=== PATIENT | male | born 1960 | race Caucasian/White ===

== ENCOUNTER → 2016-12-24 | Outpatient (CLI) | payer OTHER ==
[~2016-12-24] MED LIST: ASPIRIN81 M1 PO; CO Q-1050 MG PO; FLOMAX0.4 MG PO; LIPITOR40 MG PO; NEXIUM40 MG PO; PERCOCET 325 MG1 TA2 PO; PLAVIX75 MG PO; TORADOL10 MG PO; ZOFRAN ODT4 MG SL
== END | disposition home or self-care (01) ==
LOC: CT 01:46
DX: R91.8 Other nonspecific abnormal finding of lung field (principal); I25.10 Atherosclerotic heart disease of native coronary artery without angina pectoris

== ENCOUNTER → 2017-02-18 | Outpatient (CLI) | payer OTHER | END | disposition home or self-care (01) | LOC: RAD 16:38 | DX: N20.0 Calculus of kidney (principal); I70.0 Atherosclerosis of aorta ==

== ENCOUNTER 2017-12-31 14:50 | Emergency (ER) | payer OTHER ==
[~2017-12-31] VITALS: Ht 170.1 cm; Wt 95.3 kg
[2017-12-31] MEDS ORDERED: NORCO 5-325 TA1 EACH PO (16:32)
[2017-12-31] MEDS ORDERED: CEFADROXIL500 M1 PO (16:32)
== END 2017-12-31 17:58 | disposition home or self-care (01) ==
LOC: ED 14:50
DX: S62.663B Nondisplaced fracture of distal phalanx of left middle finger, initial encounter for open fracture (principal); S66.902A Unspecified injury of unspecified muscle, fascia and tendon at wrist and hand level, left hand, initial encounter; Z79.82 Long term (current) use of aspirin; Z79.899 Other long term (current) drug therapy; W23.0XXA Caught, crushed, jammed, or pinched between moving objects, initial encounter; Y93.89 Activity, other specified; Y92.89 Other specified places as the place of occurrence of the external cause; Y99.9 Unspecified external cause status

== ENCOUNTER → 2018-09-05 | Outpatient (CLI) | payer OTHER ==
[~2018-09-05] MED LIST changes: +CEFADROXIL500 M1 PO; +NORCO 5-325 TA1 EACH PO
== END | disposition home or self-care (01) ==
LOC: RAD 08-29 07:41
DX: K57.10 Diverticulosis of small intestine without perforation or abscess without bleeding (principal); K21.9 Gastro-esophageal reflux disease without esophagitis

== ENCOUNTER → 2019-03-17 | Outpatient (CLI) | payer OTHER | END | disposition home or self-care (01) | LOC: LAB 11:01 | DX: R07.89 Other chest pain (principal); R06.02 Shortness of breath ==

== ENCOUNTER → 2020-01-20 | Outpatient (CLI) | payer OTHER | END | disposition home or self-care (01) | LOC: CT 15:53 | DX: N28.89 Other specified disorders of kidney and ureter (principal); N20.0 Calculus of kidney ==

== ENCOUNTER → 2021-04-19 | Outpatient (CLI) | payer OTHER | END | disposition home or self-care (01) | LOC: RAD 12:01 | PROVIDERS: ATTEND Nurse Practitioner Family | DX: N20.0 Calculus of kidney (principal); M54.6 Pain in thoracic spine; M47.816 Spondylosis without myelopathy or radiculopathy, lumbar region ==

== ENCOUNTER → 2021-06-19 | Outpatient (CLI) | payer OTHER | END | disposition home or self-care (01) | LOC: RAD 13:39 | PROVIDERS: ATTEND Nurse Practitioner Family | DX: I25.10 Atherosclerotic heart disease of native coronary artery without angina pectoris (principal); I42.1 Obstructive hypertrophic cardiomyopathy; R00.1 Bradycardia, unspecified; I44.7 Left bundle-branch block, unspecified ==

== ENCOUNTER → 2022-03-27 | Outpatient (CLI) | payer OTHER | END | disposition home or self-care (01) | LOC: RAD 07:57 | PROVIDERS: ATTEND Nurse Practitioner Family | DX: N20.0 Calculus of kidney (principal); R30.0 Dysuria ==

== ENCOUNTER → 2022-04-06 | Outpatient (CLI) | payer OTHER ==
[2022-04-06 09:03] LABS: BASO % 0.7 % (0.0-1.0); EOS # 0.4 10*3/uL (0.0-0.4); EOS % 6.7 % (1.0-4.0); HEMATOCRIT 43.9 % (42.0-52.0); LYMPH # 1.6 10*3/uL (1.3-4.4); LYMPH % 29.2 % (27.0-41.0); MEAN CELL VOLUME 86.1 fl (80.0-94.0); MEAN CORPUSCULAR HGB 28.4 pg (27.0-31.0); MEAN PLATELET VOLUME 9.3 fl (9.6-12.3); MONO # 0.4 10*3/uL (0.1-1.0); MONO % 8.2 % (3.0-9.0); PLATELET COUNT AUTOMATED 251 10*3/uL (130-400); RED CELL DISTRI WIDTH 12.6 % (0-14.5); WHITE BLOOD COUNT 5.4 10*3/uL (4.8-10.8)
[2022-04-06 09:36] LABS: BUN 16 mg/dl (7-24); CHLORIDE 106 mmol/L (98-107); CHOLESTEROL 135 mg/dL (<200); CREATININE 0.82 mg/dL (0.70-1.30); LDL CHOLESTEROL 64 mg/dL (9-159); POTASSIUM 4.1 mmol/L (3.5-5.1); SGOT/AST 18 IU/L (3-35); SGPT/ALT 27 U/L (12-78); SODIUM 140 mmol/L (136-145); TOTAL PROTEIN 7.1 gm/dL (6.4-8.2); TRIGLYCERIDES 59 mg/dl (<150)
[2022-04-06 09:38] LABS: ALKALINE PHOSPHATASE 58 U/L (45-117)
== END | disposition home or self-care (01) ==
LOC: LAB 08:42
PROVIDERS: ATTEND Nurse Practitioner Family
DX: I25.10 Atherosclerotic heart disease of native coronary artery without angina pectoris (principal); Z85.46 Personal history of malignant neoplasm of prostate; E78.00 Pure hypercholesterolemia, unspecified; R00.1 Bradycardia, unspecified; M54.50 Low back pain, unspecified; Z12.5 Encounter for screening for malignant neoplasm of prostate

== ENCOUNTER → 2022-07-11 | Outpatient (CLI) | payer OTHER | END | disposition home or self-care (01) | LOC: RAD 11:37 | PROVIDERS: ATTEND Urology | DX: R10.2 Pelvic and perineal pain (principal) ==

== ENCOUNTER 2022-09-23 07:02 | Emergency (ER) | payer OTHER ==
[~2022-09-23] VITALS: Ht 175.2 cm; Wt 90.7 kg
[2022-09-23] MEDS ORDERED: ROSUVASTATIN CA40 MG PO (07:27)
[2022-09-23] MEDS ORDERED: OZEMPIC2 MG/0.71 SQ (07:27)
[2022-09-23] MEDS ORDERED: FLUOXETINE HCL40 MG PO (07:27)
[2022-09-23] MEDS ORDERED: PRASUGREL HCL10 MG PO (07:28)
[2022-09-23] MEDS ORDERED: HYDROXYZINE HCL25 MG PO (07:29)
[2022-09-23 07:41] LABS: BASO # 0.1 10*3/uL (0.0-0.1); EOS # 0.8 10*3/uL (0.0-0.4); HEMATOCRIT 42.6 % (42.0-52.0); LYMPH # 1.6 10*3/uL (1.3-4.4); LYMPH % 25.6 % (27.0-41.0); MEAN CELL VOLUME 84.5 fl (80.0-94.0); MEAN CORPUSCULAR HGB CONC 34.3 g/dl (33.0-37.0); MEAN PLATELET VOLUME 9.5 fl (9.6-12.3); MONO # 0.4 10*3/uL (0.1-1.0); MONO % 7.1 % (3.0-9.0); NEUT # 3.3 10*3/uL (2.3-7.9); NEUT % 53.1 % (47.0-73.0); PLATELET COUNT AUTOMATED 212 10*3/uL (130-400); RED BLOOD COUNT 5.04 10*6/uL (4.50-5.90); RED CELL DISTRI WIDTH 12.3 % (0-14.5); WHITE BLOOD COUNT 6.2 10*3/uL (4.8-10.8)
[2022-09-23 07:52] LABS: ACT PARTIAL THROMBO TIME 27.9 SECONDS (20.0-32.1); INTERNATIONAL NORM RATIO 1.1 (2.0-3.5)
[2022-09-23 07:57] LABS: ALKALINE PHOSPHATASE 66 U/L (46-116); BUN 11 mg/dl (9-23); CHLORIDE 106 mmol/L (98-107); POTASSIUM 4.2 mmol/L (3.4-5.1); SGPT/ALT 11 U/L (10-49); TOTAL PROTEIN 6.4 gm/dL (6.0-8.0)
[2022-09-23 10:06] LABS: BILIRUBIN Negative (Negative); BLOOD Negative (Negative); CLARITY Clear (Clear); COLOR Yellow (Yellow); GLUCOSE Negative (Negative); KETONE Negative (Negative); LEUKO ESTERASE Trace (Negative); NITRITE Negative (Negative); PH 7.5 (4.5-8.0); UROBILINOGEN 0.2 E.U./dl (0.0-1.0)
[2022-09-23 10:19] LABS: BACTERIA 1+; MUCOUS TRACE; WBC 21-30 wbc/hpf (0-5)
[2022-09-23] MEDS ORDERED: OMEPRAZOLE40 MG PO (13:06)
== END 2022-09-23 13:37 | disposition home or self-care (01) ==
LOC: ED 07:02
PROVIDERS: Emergency Medicine; Internal Medicine
DX: K21.9 Gastro-esophageal reflux disease without esophagitis (principal); Z79.899 Other long term (current) drug therapy; Z79.82 Long term (current) use of aspirin

== ENCOUNTER → 2022-11-28 | Outpatient (CLI) | payer OTHER ==
[~2022-11-28] MED LIST changes: +FLUOXETINE HCL40 MG PO; +HYDROXYZINE HCL25 MG PO; +OMEPRAZOLE40 MG PO; +OZEMPIC2 MG/0.71 SQ; +PRASUGREL HCL10 MG PO; +ROSUVASTATIN CA40 MG PO
== END | disposition home or self-care (01) ==
LOC: RAD 08:31
PROVIDERS: ATTEND Nurse Practitioner Family
DX: M47.817 Spondylosis without myelopathy or radiculopathy, lumbosacral region (principal); M43.8X5 Other specified deforming dorsopathies, thoracolumbar region

== ENCOUNTER → 2022-12-25 | Outpatient (CLI) | payer OTHER | END | disposition home or self-care (01) | LOC: RAD 10:09 | PROVIDERS: ATTEND Nurse Practitioner Family | DX: M43.8X4 Other specified deforming dorsopathies, thoracic region (principal); R93.89 Abnormal findings on diagnostic imaging of other specified body structures; M79.605 Pain in left leg ==

== ENCOUNTER → 2023-01-16 | Outpatient (CLI) | payer OTHER | END | disposition home or self-care (01) | LOC: MRI 01:32 | PROVIDERS: ATTEND Nurse Practitioner Family | DX: M47.816 Spondylosis without myelopathy or radiculopathy, lumbar region (principal); M48.061 Spinal stenosis, lumbar region without neurogenic claudication; M25.78 Osteophyte, vertebrae; M47.812 Spondylosis without myelopathy or radiculopathy, cervical region ==

== ENCOUNTER → 2023-02-28 | Outpatient (CLI) | payer OTHER ==
[2023-02-28 10:24] LABS: CHLORIDE 107 mmol/L (98-107); POTASSIUM 4.6 mmol/L (3.4-5.1)
[2023-02-28 10:25] LABS: ALKALINE PHOSPHATASE 75 U/L (46-116); BUN 9 mg/dl (9-23); CHOLESTEROL 122 mg/dL (<200); LDL CHOLESTEROL 56 mg/dL (9-159); SGPT/ALT 25 U/L (10-49); TOTAL PROTEIN 6.8 gm/dL (6.0-8.0); TRIGLYCERIDES 50 mg/dl (<150)
[2023-02-28 11:07] LABS: BASO # 0.1 10*3/uL (0.0-0.1); BASO % 0.9 % (0.0-1.0); EOS # 0.3 10*3/uL (0.0-0.4); EOS % 5.6 % (1.0-4.0); HEMATOCRIT 44.3 % (42.0-52.0); LYMPH # 1.7 10*3/uL (1.3-4.4); LYMPH % 31.2 % (27.0-41.0); MEAN CELL VOLUME 85.4 fl (80.0-94.0); MEAN CORPUSCULAR HGB 28.7 pg (27.0-31.0); MEAN CORPUSCULAR HGB CONC 33.6 g/dl (33.0-37.0); MEAN PLATELET VOLUME 8.9 fl (9.6-12.3); MONO # 0.4 10*3/uL (0.1-1.0); MONO % 7.1 % (3.0-9.0); PLATELET COUNT AUTOMATED 218 10*3/uL (130-400); RED BLOOD COUNT 5.19 10*6/uL (4.50-5.90); RED CELL DISTRI WIDTH 12.3 % (0-14.5); WHITE BLOOD COUNT 5.4 10*3/uL (4.8-10.8)
== END | disposition home or self-care (01) ==
LOC: LAB 09:02
PROVIDERS: ATTEND Nurse Practitioner Family
DX: I25.10 Atherosclerotic heart disease of native coronary artery without angina pectoris (principal); R73.01 Impaired fasting glucose; R00.1 Bradycardia, unspecified

== ENCOUNTER → 2023-06-03 | Day surgery (SDC) | payer MEDICARE, OTHER ==
[~2023-06-03] VITALS: Ht 170.1 cm; Wt 87.1 kg
[2023-06-03 12:07] VITALS: BP 145/75
[2023-06-03 12:50] VITALS: BP 131/77
[2023-06-03 13:05] VITALS: BP 136/80
[2023-06-03 13:20] VITALS: BP 141/78
== END | disposition home or self-care (01) ==
LOC: SDC 05-31 14:00
PROVIDERS: ATTEND Surgery
DX: K21.00 Gastro-esophageal reflux disease with esophagitis, without bleeding (principal); K31.89 Other diseases of stomach and duodenum; I25.10 Atherosclerotic heart disease of native coronary artery without angina pectoris; I48.91 Unspecified atrial fibrillation; E78.00 Pure hypercholesterolemia, unspecified; G47.30 Sleep apnea, unspecified; F41.9 Anxiety disorder, unspecified; F32.A Depression, unspecified; Z85.46 Personal history of malignant neoplasm of prostate; Z87.891 Personal history of nicotine dependence; Z79.899 Other long term (current) drug therapy; Z98.890 Other specified postprocedural states

== ENCOUNTER → 2023-08-29 | Outpatient (CLI) | payer MEDICARE ==
[2023-08-29 08:05] LABS: BASO % 0.8 % (0.0-1.0); EOS # 0.4 10*3/uL (0.0-0.4); EOS % 8.2 % (1.0-4.0); HEMATOCRIT 45.2 % (42.0-52.0); LYMPH # 1.8 10*3/uL (1.3-4.4); LYMPH % 34.4 % (27.0-41.0); MEAN CELL VOLUME 87.6 fl (80.0-94.0); MEAN CORPUSCULAR HGB 28.1 pg (27.0-31.0); MEAN CORPUSCULAR HGB CONC 32.1 g/dl (33.0-37.0); MEAN PLATELET VOLUME 8.9 fl (9.6-12.3); MONO # 0.5 10*3/uL (0.1-1.0); MONO % 8.8 % (3.0-9.0); NEUT # 2.5 10*3/uL (2.3-7.9); NEUT % 47.8 % (47.0-73.0); PLATELET COUNT AUTOMATED 240 10*3/uL (130-400); RED BLOOD COUNT 5.16 10*6/uL (4.50-5.90); RED CELL DISTRI WIDTH 12.4 % (0-14.5); WHITE BLOOD COUNT 5.1 10*3/uL (4.8-10.8)
[2023-08-29 08:17] LABS: URINE CREATININE RANDOM 57.29 mg/dL
[2023-08-29 08:37] LABS: ALKALINE PHOSPHATASE 71 U/L (46-116); BUN 10 mg/dl (9-23); CHLORIDE 106 mmol/L (98-107); CHOLESTEROL 129 mg/dL (<200); LDL CHOLESTEROL 60 mg/dL (9-159); SGPT/ALT 40 U/L (5-49); TOTAL PROTEIN 6.8 gm/dL (6.0-8.0); TRIGLYCERIDES 64 mg/dl (<150)
== END | disposition home or self-care (01) ==
LOC: LAB 07:49
PROVIDERS: ATTEND Nurse Practitioner Family
DX: I25.10 Atherosclerotic heart disease of native coronary artery without angina pectoris (principal); R00.1 Bradycardia, unspecified; F32.9 Major depressive disorder, single episode, unspecified; E11.69 Type 2 diabetes mellitus with other specified complication; Z85.46 Personal history of malignant neoplasm of prostate

== ENCOUNTER → 2023-09-20 | Outpatient (CLI) | payer MEDICARE ==
[~2023-09-20] MED LIST changes: +Motrin,Rufen800 MG PO; +ONDANSETRON4 MG SL; +PERCOCET 5-3251 EACH PO
== END | disposition home or self-care (01) ==
LOC: LAB 01:22 → US 07:30 → LAB 07:30
PROVIDERS: ATTEND Nurse Practitioner Family
DX: N13.2 Hydronephrosis with renal and ureteral calculous obstruction (principal); E11.8 Type 2 diabetes mellitus with unspecified complications; I10 Essential (primary) hypertension; R79.89 Other specified abnormal findings of blood chemistry; K21.9 Gastro-esophageal reflux disease without esophagitis; Z86.010 Personal history of colon polyps

== ENCOUNTER → 2023-12-20 | Outpatient (CLI) | payer MEDICARE ==
[2023-12-20 07:27] LABS: BASO % 0.6 % (0.0-1.0); EOS # 0.3 10*3/uL (0.0-0.4); EOS % 5.9 % (1.0-4.0); HEMATOCRIT 41.9 % (42.0-52.0); LYMPH # 1.5 10*3/uL (1.3-4.4); LYMPH % 31.7 % (27.0-41.0); MEAN CELL VOLUME 87.5 fl (80.0-94.0); MEAN CORPUSCULAR HGB 28.4 pg (27.0-31.0); MEAN CORPUSCULAR HGB CONC 32.5 g/dl (33.0-37.0); MEAN PLATELET VOLUME 8.8 fl (9.6-12.3); MONO # 0.4 10*3/uL (0.1-1.0); NEUT # 2.5 10*3/uL (2.3-7.9); NEUT % 52.6 % (47.0-73.0); PLATELET COUNT AUTOMATED 216 10*3/uL (130-400); RED BLOOD COUNT 4.79 10*6/uL (4.50-5.90); RED CELL DISTRI WIDTH 12.5 % (0-14.5); WHITE BLOOD COUNT 4.8 10*3/uL (4.8-10.8)
[2023-12-20 07:45] LABS: URINE CREATININE RANDOM 118.29 mg/dL
[2023-12-20 08:18] LABS: ALKALINE PHOSPHATASE 61 U/L (46-116); BUN 14 mg/dl (9-23); CHLORIDE 104 mmol/L (98-107); CHOLESTEROL 131 mg/dL (<200); LDL CHOLESTEROL 63 mg/dL (9-159); POTASSIUM 4.6 mmol/L (3.4-5.1); SGPT/ALT 24 U/L (5-49); TOTAL PROTEIN 6.5 gm/dL (6.0-8.0); TRIGLYCERIDES 54 mg/dl (<150)
== END | disposition home or self-care (01) ==
LOC: LAB 07:08
PROVIDERS: ATTEND Nurse Practitioner Family
DX: E11.8 Type 2 diabetes mellitus with unspecified complications (principal); K21.9 Gastro-esophageal reflux disease without esophagitis; N20.0 Calculus of kidney; I10 Essential (primary) hypertension; R79.89 Other specified abnormal findings of blood chemistry; Z86.010 Personal history of colon polyps

== ENCOUNTER → 2024-01-28 | Outpatient (CLI) | payer MEDICARE | END | disposition home or self-care (01) | LOC: LAB 10:04 | PROVIDERS: ATTEND Nurse Practitioner Family | DX: Z20.822 Contact with and (suspected) exposure to COVID-19 (principal) ==

== ENCOUNTER → 2024-03-19 | Outpatient (CLI) | payer MEDICARE ==
[2024-03-19 07:59] LABS: BASO % 0.8 % (0.0-1.0); EOS # 0.3 10*3/uL (0.0-0.4); EOS % 5.1 % (1.0-4.0); HEMATOCRIT 41.3 % (42.0-52.0); LYMPH # 1.9 10*3/uL (1.3-4.4); LYMPH % 36.2 % (27.0-41.0); MEAN CELL VOLUME 85.9 fl (80.0-94.0); MEAN CORPUSCULAR HGB 28.3 pg (27.0-31.0); MEAN CORPUSCULAR HGB CONC 32.9 g/dl (33.0-37.0); MEAN PLATELET VOLUME 9.2 fl (9.6-12.3); MONO # 0.5 10*3/uL (0.1-1.0); MONO % 9.5 % (3.0-9.0); NEUT # 2.5 10*3/uL (2.3-7.9); PLATELET COUNT AUTOMATED 242 10*3/uL (130-400); RED BLOOD COUNT 4.81 10*6/uL (4.50-5.90); RED CELL DISTRI WIDTH 12.5 % (0-14.5); WHITE BLOOD COUNT 5.3 10*3/uL (4.8-10.8)
[2024-03-19 08:14] LABS: URINE CREATININE RANDOM 188.93 mg/dL
[2024-03-19 08:52] LABS: ALKALINE PHOSPHATASE 63 U/L (46-116); BUN 14 mg/dl (9-23); CHLORIDE 106 mmol/L (98-107); CHOLESTEROL 146 mg/dL (<200); LDL CHOLESTEROL 73 mg/dL (9-159); POTASSIUM 4.2 mmol/L (3.4-5.1); SGPT/ALT 18 U/L (5-49); TOTAL PROTEIN 6.6 gm/dL (6.0-8.0); TRIGLYCERIDES 57 mg/dl (<150)
== END | disposition home or self-care (01) ==
LOC: LAB 07:34
PROVIDERS: ATTEND Nurse Practitioner Family
DX: R00.1 Bradycardia, unspecified (principal); E78.00 Pure hypercholesterolemia, unspecified; F32.9 Major depressive disorder, single episode, unspecified; F41.9 Anxiety disorder, unspecified; Z79.899 Other long term (current) drug therapy

== ENCOUNTER 2024-04-03 10:09 | Emergency (ER) | payer MEDICARE ==
[~2024-04-03] VITALS: Ht 170.1 cm; Wt 87.5 kg
[2024-04-03] MEDS ORDERED: Acetaminophen/Oxycodone 5 MG/325 MG TABLET PO ONE (10:15)
[2024-04-03] MEDS ORDERED: PERCOCET 5-3251 EACH PO (10:52)
== END 2024-04-03 11:07 | disposition home or self-care (01) ==
LOC: ED 10:09
DX: S43.101A Unspecified dislocation of right acromioclavicular joint, initial encounter (principal); I48.91 Unspecified atrial fibrillation; I25.2 Old myocardial infarction; I25.10 Atherosclerotic heart disease of native coronary artery without angina pectoris; I50.9 Heart failure, unspecified; Z98.890 Other specified postprocedural states; W19.XXXA Unspecified fall, initial encounter; Y93.89 Activity, other specified; Y92.89 Other specified places as the place of occurrence of the external cause; Y99.8 Other external cause status